=== PATIENT | female | born 1990 | race Caucasian/White ===

== ENCOUNTER 2017-02-12 14:54 | Emergency (ER) | payer MEDICAID, OTHER ==
[~2017-02-12] VITALS: Ht 160 cm; Wt 74.8 kg
[2017-02-12] MEDS ORDERED: Prenatal Vitamin PO (15:18)
--- NOTE | 2017-02-12 15:53 | PD ---
HPI Chief Complaint Abdominal pain Decreased movement Date Seen: Feb 12, 2017 Time Seen: 15:54 Travel History International Travel<30 Days: No Contact w/Intl Traveler<30Days: No Known Affected Area: No History of Present Illness HPI Patient is a 26 year old at 26 weeks and 1 day who presents to OB triage with lower and bilateral abdominal pain x1day as well as decreased movement today. Patient states that she was experiencing irregular, sharp pains in her lower abdomen that came and went. Patient describes bilateral abdominal pain as a dull ache with tingling down her legs. Patient denies increased frequency of urination and burning with urination. Patient reports decreased movement today; since she arrived at hospital, she is feeling baby move normally. Patient denies vaginal bleeding and leakage of fluid. Of note, patient has headaches every day at baseline. Patient denies vision changes, right upper quadrant pain and swelling of hands and feet. History of preeclampsia with second . Patient completed a 24-hour urine weeks ago with OB; no concerns at that time. Per patient, ultrasound performed 3 weeks ago showed cervical length to be long. Para: 1 : 4 Miscarriage: 2 : 0 History Past Medical History Medical History: Denies Significant Hx Obstetric History Obstetric History G1 miscarriage at 7 weeks G2 34 weeks, preeclampsia, vaginal delivery, low weight - 3lbs 14 ounces , in NICU for 3 weeks G3 miscarriage at 7 weeks; June 2016 G4 current, denies complications, concern for growth - 22th percentile Past Surgical History Narrative Surgical Appendectomy 2009 Family History Family History: Negative Social History Alcohol Use: No Tobacco Use: No Substance Abuse: No Allergies-Medications (Allergen,Severity, Reaction): Coded Allergies: Sulfa (Verified Allergy, Unknown, Rash, 02/12/17) Home Meds Reported Medications [ Vitamin] No Conflict Check1 Tab PO DAILY 02/12/17 Review of Systems General / Constitutional: No: Fever, Weight Gain, Chills, Other Eyes: No: Diploplia, Blurred Vision, Visual changes, Pain, Photophobia HENT: Headaches, No: Lightheadedness Cardiovascular: No: Irregular Rhythm, Chest Pain or Discomfort, Palpitations, Tachycardia, Syncope, Varicosities, Edema, Cyanosis Respiratory: No: Cough, Short of Breath, Other Gastrointestinal: Abdominal Pain, Constipation, No: Nausea, Vomiting, Diarrhea Genitourinary: No: Urgency, Frequency, Dysuria, Hematuria Musculoskeletal: No: Limited ROM, Weakness, Cramping, Edema, Pain Skin: No Rash, No Itching, No Dryness, No Lumps, No Change in Pigmentation, No Change in Nails, No Alopecia, No Lesions Neurologic: No: Weakness, Dizziness, Syncope, Focal Abnormalities, Coordination Problem, Headache, Slurred Speech, Seizures Psychiatric: No: Depression, Suicidal Ideations, Homicidal Ideation Endocrine: No: Heat Intolerance, Cold Intolerance, Polydipsia, Polyuria, Other Physical Exam Narrative GENERAL: Well-nourished, well-developed patient. SKIN: Warm and dry. HEAD: Normocephalic and atraumatic. EYES: No scleral icterus. No injection or drainage. ENT: No nasal drainage noted. Mucous membranes pink. Airway patent. NECK: Supple, trachea midline. No JVD. CARDIOVASCULAR: Regular rate and rhythm without murmurs, gallops, or rubs. RESPIRATORY: Breath sounds equal bilaterally. No accessory muscle use. ABDOMEN/GI: Abdomen soft, non-tender, bowel sounds present, no rebound, no guarding Gravid to 26 weeks size GENITOURINARY: External Genitalia: intact and normal in appearance Dilatation: Closed Effacement: Thick Station: High Membranes: Intact Uterine Contractions: None FHT's: Category: 1 Baseline: 133 Reactive: + Variability: Moderate Decels: None EXTREMITIES: No cyanosis or edema. BACK: Nontender without obvious deformity. No CVA tenderness. NEUROLOGICAL: Awake and alert. Motor and sensory grossly within normal limits. Five out of 5 muscle strength in all muscle groups. Normal speech. Data Data Vital Signs Reviewed: Yes MDM Plan Patient is a 26 year old at 26 weeks and 1 day who presents to OB triage with lower and bilateral abdominal pain x1day as well as decreased movement today. * monitoring - see PE * UA negative * Encouraged hydration * Discharge home Diagnosis Diagnosis: Primary Impression: Abdominal pain affecting , antepartum Additional Impression: 26 weeks gestation of Disposition: DISCHARGE HOME Condition: Good Jocelyn Lewis MD R1 Feb 12, 2017 15:53
== END 2017-02-12 16:22 | disposition home or self-care (01) ==
LOC: HOBED 14:54
DX: O36.8120 Decreased fetal movements, second trimester, not applicable or unspecified (principal); O47.02 False labor before 37 completed weeks of gestation, second trimester; Z3A.26 26 weeks gestation of pregnancy
CPT/HCPCS: 99283

== ENCOUNTER 2017-04-24 10:50 | Emergency (ER) | payer MEDICAID ==
[~2017-04-24 10:50] MED LIST: Prenatal Vitamin PO
--- NOTE | 2017-04-24 11:43 | PD ---
HPI Chief Complaint Elevated blood pressure at home Date Seen: Apr 24, 2017 Time Seen: 11:40 Travel History International Travel<30 Days: No Contact w/Intl Traveler<30Days: No Known Affected Area: No History of Present Illness HPI 26-year-old who is at 36 weeks 2 days comes in complaining of elevated blood pressure when she took it at [employer]. Patient was concerned as her first was affected with preeclampsia that was being followed when she spontaneously ruptured her membranes and was delivered at 34 weeks. Patient denies any headache, edema, or abdominal pain. Patient is being followed by Dr. Kwon with normal blood pressures in the office with another appointment on Thursday for recheck. Patient denies any complications. Weeks Gestation: 36 Para: 1 : 4 History Past Medical History Medical History: Denies Significant Hx Obstetric History Obstetric History Spontaneous vaginal delivery at 34 weeks gestation Past Surgical History Surgical History: No Previous Surgery Family History Family History: Negative Social History Alcohol Use: No Tobacco Use: No Substance Abuse: No Allergies-Medications (Allergen,Severity, Reaction): Coded Allergies: Sulfa (Sulfonamide Antibiotics) (Unverified Allergy, Unknown, Rash, ) Home Meds Reported Medications [ Vitamin] No Conflict Check, 1 TAB PO DAILY 02/12/17 Review of Systems Except as stated in HPI: all other systems reviewed are Neg Physical Exam Narrative GENERAL: Well-nourished, well-developed patient. SKIN: Warm and dry. HEAD: Normocephalic and atraumatic. EYES: No scleral icterus. No injection or drainage. ENT: No nasal drainage noted. Mucous membranes pink. Airway patent. NECK: Supple, trachea midline. No JVD. CARDIOVASCULAR: Regular rate and rhythm without murmurs, gallops, or rubs. RESPIRATORY: Breath sounds equal bilaterally. No accessory muscle use. ABDOMEN/GI: Abdomen soft, non-tender, bowel sounds present, no rebound, no guarding Gravid to [36-] weeks size Fundal Height: [-] GENITOURINARY: Deferred External Genitalia: intact and normal in appearance BUS glands: [-] Cervix: [-] Dilatation: [-] Effacement: [-] Station: [-] Presentation: [-] Membranes: [intact or ruptured] Uterine Contractions: [-] FHT's: Category: [1-] Baseline: [140-] Reactive: [Moderate-] Variability: [Moderate-] Decels: [-Absent] EXTREMITIES: No cyanosis or edema. BACK: Nontender without obvious deformity. No CVA tenderness. NEUROLOGICAL: Awake and alert. Motor and sensory grossly within normal limits. Five out of 5 muscle strength in all muscle groups. Normal speech. Urine dip, negative protein Data Data Vital Signs Reviewed: Yes MDM Medical Record Reviewed: Yes Plan 26-year-old with a history of hypertension with her first Blood pressure here is 118/72, 112/72 with negative protein and no additional symptoms Discharge home with follow-up on Thursday Diagnosis Diagnosis: Primary Impression: 36 weeks gestation of Additional Impressions: History of pre-eclampsia in prior , currently Elevated blood pressure reading Disposition: DISCHARGE HOME Roberta Freire MD Apr 24, 2017 11:43
== END 2017-04-24 12:02 | disposition home or self-care (01) ==
LOC: HOBED 10:50
DX: O26.93 Pregnancy related conditions, unspecified, third trimester (principal); R03.0 Elevated blood-pressure reading, without diagnosis of hypertension; Z3A.36 36 weeks gestation of pregnancy
CPT/HCPCS: 59025

== ENCOUNTER 2017-05-15 21:32 | Inpatient (IN) | payer MEDICAID ==
[~2017-05-15] VITALS: Ht 160 cm; Wt 84.0 kg
[2017-05-15] VITALS (17 sets, daily range): BP systolic 114–118; BP diastolic 69–87; PULSE 95–108; RESP 14; TEMP 98
[2017-05-15] MEDS ORDERED: LACTATED RINGER'S 1000 ML INJ 1,000 ML IV PRN (22:31)
[2017-05-15] MEDS ORDERED: LACTATED RINGER'S 1000 ML INJ 1,000 ML IV SCH (22:31)
--- NOTE | 2017-05-15 22:44 | PD ---
HPI Chief Complaint Ruptured membranes 39 weeks and 2 days Date Seen: May 15, 2017 Time Seen: 22:00 Travel History International Travel<30 Days: No Contact w/Intl Traveler<30Days: No Known Affected Area: No History of Present Illness HPI 26 yo at 39 weeks and 2 days who presents with leaking fluid . Pt reports clear leak at about 20:00. Pt is GBS negative. Pt reports active movements. No vaginal bleeding. EDC 05-20-2017, care with Dr Kwon. Care previously uncomplicated. Prior complicated with pre-eclampsia. Weeks Gestation: 39 Para: 1 : 2 History Past Medical History Narrative Medical h/o depression/ Anxiety/ PTSD Medical History: Denies Significant Hx Obstetric History Obstetric History Prior vaginal delivery at 34 weeks, complicated by pre-eclampsia. Past Surgical History Narrative Surgical Appendectomy Social History Alcohol Use: No Tobacco Use: No Substance Abuse: No Allergies-Medications (Allergen,Severity, Reaction): Coded Allergies: Sulfa (Sulfonamide Antibiotics) (Unverified Allergy, Unknown, Rash, ) Home Meds Reported Medications [ Vitamin] No Conflict Check, 1 TAB PO DAILY 02/12/17 Review of Systems Except as stated in HPI: all other systems reviewed are Neg Physical Exam Narrative GENERAL: Well-nourished, well-developed patient. SKIN: Warm and dry. HEAD: Normocephalic and atraumatic. EYES: No scleral icterus. No injection or drainage. ENT: No nasal drainage noted. Mucous membranes pink. Airway patent. NECK: Supple, trachea midline. No JVD. CARDIOVASCULAR: Regular rate and rhythm without murmurs, gallops, or rubs. RESPIRATORY: Breath sounds equal bilaterally. No accessory muscle use. BREASTS: Bilateral exam showed no masses , no retractions, no nipple discharge. ABDOMEN/GI: Abdomen soft, non-tender, bowel sounds present, no rebound, no guarding Gravid to [39 weeks] weeks size Fundal Height: [-] GENITOURINARY: External Genitalia: intact and normal in appearance BUS glands: [wnl] Cervix: [soft] Dilatation: [3cm] Effacement: [605] Station: [-2] Presentation: [vertex] Membranes: [ruptured] Amniosure POSITIVE Uterine Contractions: [irregular] FHT's: Category: [cat 1] Baseline: [130s] Reactive: [-] Variability: [moderate] Decels: [none] EXTREMITIES: No cyanosis or edema. BACK: Nontender without obvious deformity. No CVA tenderness. NEUROLOGICAL: Awake and alert. Motor and sensory grossly within normal limits. Five out of 5 muscle strength in all muscle groups. Normal speech. Data Data Vital Signs Reviewed: Yes Group B Strep: Negative MDM Medical Record Reviewed: Yes Plan 26 yo at 39 weeks and 4 days. Presents with SROM at term. GBS negative. Will admit with expectation of labor and delivery. Plan discussed with dr pickard, Diagnosis Diagnosis: Primary Impression: with 39 completed weeks gestation Additional Impression: Ruptured, membranes, premature Viktor Robertson MD May 15, 2017 22:44
[2017-05-15] MEDS ORDERED: OXYTOCIN 30 UNITS-500ML PREMIX 500 ML IV ONE (22:45)
[2017-05-15] MEDS ORDERED: LIDOCAINE HCL 1% 50 ML VIAL INFIL PRN (22:45)
[2017-05-15] MEDS ORDERED: MINERAL OIL 10 ML VIAL TOPICAL PRN (22:45)
[2017-05-15] MEDS ORDERED: SODIUM CHLORID 0.9% 500 ML INJ 500 ML IV PRN (22:45)
[2017-05-15] MEDS ORDERED: CITRIC ACID-SODIUM CITRATE LIQ 30 ML UDC PO SCH (22:45)
[2017-05-15] MEDS ORDERED: LIDOCAINE HCL 1% 50 ML VIAL I-DERMAL PRN (22:45)
[2017-05-15] MEDS ORDERED: SODIUM CHLOR 0.9% 1000 ML INJ 1,000 ML IV PRN (22:51)
[2017-05-15 23:23] LABS: AUTOMATED NEUTROPHIL # 10.6 TH/MM3 (1.8-7.7); BASOPHIL % 0.2 % (0.0-2.0); EOSINOPHIL # 0.1 TH/MM3 (0-0.4); EOSINOPHIL % 0.7 % (0.0-4.0); HEMATOCRIT 38.8 % (35.0-46.0); HEMOGLOBIN 13.1 GM/DL (11.6-15.3); LYMPH % 18.7 % (9.0-44.0); LYMPHOCYTE # 2.7 TH/MM3 (1.0-4.8); MEAN CELL VOLUME 92.9 FL (80.0-100.0); MEAN CORPUSCULAR HEMOGLOBIN 31.4 PG (27.0-34.0); MEAN CORPUSCULAR HGB CONC 33.8 % (32.0-36.0); MEAN PLATELET VOLUME 10.3 FL (7.0-11.0); MONO % 7.7 % (0.0-8.0); MONOCYTE # 1.1 TH/MM3 (0-0.9); NEUT % 72.7 % (16.0-70.0); PLATELET COUNT 205 TH/MM3 (150-450); RED BLOOD COUNT 4.18 MIL/MM3 (4.00-5.30); RED CELL DISTRIBUTION WIDTH 13.1 % (11.6-17.2); WHITE BLOOD COUNT 14.6 TH/MM3 (4.0-11.0)
[2017-05-15 23:35] LABS: AMORPHOUS SEDIMENT, URINE OCC; BACTERIA, URINE FEW /hpf; BILIRUBIN, URINE NEG (NEG); BLOOD, URINE TRACE (NEG); GLUCOSE,URINE NEG (NEG); KETONE, URINE NEG (NEG); MUCUS URINE FEW /lpf (OCC); NITRITE,URINE NEG (NEG); PH, URINE 6.5 (5.0-8.5); SQUAMOUS EPITHELIAL CELL URINE 10 /hpf (0-5); URINE COLOR LIGHT-YELLOW (YELLW/STRAW); URINE LEUKOCYTE ESTERASE MOD (NEG)
--- NOTE | 2017-05-15 23:35 | HHI.HP ---
HPI Chief Complaint Leaking fluid 39 weeks and 2 days Date Seen: May 15, 2017 Time Seen: 22:30 Travel History International Travel<30 Days: No Contact w/Intl Traveler<30Days: No Known Affected Area: No History of Present Illness HPI 26 yo at 39 weeks and 2 days who presents with leaking fluid . Pt reports clear leak at about 20:00. Pt is GBS negative. Pt reports active movements. No vaginal bleeding. EDC 05-20-2017, care with Dr Kwon. Care previously uncomplicated. Prior complicated with pre-eclampsia. Weeks Gestation: 39 Para: 1 : 2 History Past Medical History Medical History: Denies Significant Hx Obstetric History Obstetric History Previous delivered preeterm at 34 weeks, complicated by pre-eclampsia Past Surgical History Narrative Surgical Appendectomy Surgical History: No Previous Surgery Family History Family History: Negative Social History Alcohol Use: No Tobacco Use: No Substance Abuse: No Allergies-Medications (Allergen,Severity, Reaction): Coded Allergies: Sulfa (Sulfonamide Antibiotics) (Unverified Allergy, Unknown, Rash, ) Home Meds Reported Medications [ Vitamin] No Conflict Check, 1 TAB PO DAILY 02/12/17 Review of Systems Except as stated in HPI: all other systems reviewed are Neg Physical Exam Vital Signs Date Time Temp Pulse Resp B/P (MAP) Pulse Ox O2 Delivery O2 Flow Rate FiO2 05/15/17 23:00 98.0 14 05/15/17 22:55 95 05/15/17 22:55 102 118/87 (97) 05/15/17 22:50 108 05/15/17 22:45 108 Narrative GENERAL: Well-nourished, well-developed patient. SKIN: Warm and dry. HEAD: Normocephalic and atraumatic. EYES: No scleral icterus. No injection or drainage. ENT: No nasal drainage noted. Mucous membranes pink. Airway patent. NECK: Supple, trachea midline. No JVD. CARDIOVASCULAR: Regular rate and rhythm without murmurs, gallops, or rubs. RESPIRATORY: Breath sounds equal bilaterally. No accessory muscle use. BREASTS: Bilateral exam showed no masses , no retractions, no nipple discharge. ABDOMEN/GI: Abdomen soft, non-tender, bowel sounds present, no rebound, no guarding Gravid to [39] weeks size Fundal Height: [39] GENITOURINARY: External Genitalia: intact and normal in appearance BUS glands: [wnl] Cervix: [soft] Dilatation: [3cm] Effacement: [60%] Station: [-2] Presentation: [vertex] Membranes: [intact or ruptured] Uterine Contractions: [irregular] FHT's: Category: [cat 1] Baseline: [130s Reactive: [-] Variability: [moderate] Decels: [none] EXTREMITIES: No cyanosis or edema. BACK: Nontender without obvious deformity. No CVA tenderness. NEUROLOGICAL: Awake and alert. Motor and sensory grossly within normal limits. Five out of 5 muscle strength in all muscle groups. Normal speech. Caprini VTE Risk Assessment Caprini VTE Risk Assessment: No/Low Risk (score <= 1) Caprini Risk Assessment Model Point Value = 1 Point Value = 2 Point Value = 3 Point Value = 5 Age 41-60 Minor surgery BMI > 25 kg/m2 Swollen legs Varicose veins or History of unexplained or recurrent spontaneous Oral contraceptives or hormone replacement Sepsis (< 1 month) Serious lung disease, including pneumonia (< 1 month) Abnormal pulmonary function Acute myocardial infarction Congestive heart failure (< 1 month) History of inflammatory bowel disease Medical patient at bed rest Age 61-74 Arthroscopic surgery Major open surgery (> 45 min) Laparoscopic surgery (> 45 min) Malignancy Confined to bed (> 72 hours) Immobilizing plaster cast Central venous access Age >= 75 History of VTE Family history of VTE Factor V Leiden Prothrombin [id number] Lupus anticoagulant Anticardiolipin antibodies Elevated serum homocysteine Heparin-induced thrombocytopenia Other congenital or acquired thrombophilia Stroke (< 1 month) Elective arthroplasty Hip, pelvis, or leg fracture Acute spinal cord injury (< 1 month) Prophylaxis Regimen Total Risk Factor Score Risk Level Prophylaxis Regimen 0-1 Low Early ambulation 2 Moderate Order ONE of the following: *Sequential Compression Device (SCD) *Heparin 5000 units SQ BID 3-4 Higher Order ONE of the following medications: *Heparin 5000 units SQ TID *Enoxaparin/Lovenox 40 mg SQ daily (WT < 150 kg, CrCl > 30 mL/min) *Enoxaparin/Lovenox 30 mg SQ daily (WT < 150 kg, CrCl > 10-29 mL/min) *Enoxaparin/Lovenox 30 mg SQ BID (WT < 150 kg, CrCl > 30 mL/min) AND/OR *Sequential Compression Device (SCD) 5 or more Highest Order ONE of the following medications: *Heparin 5000 units SQ TID (Preferred with Epidurals) *Enoxaparin/Lovenox 40 mg SQ daily (WT < 150 kg, CrCl > 30 mL/min) *Enoxaparin/Lovenox 30 mg SQ daily (WT < 150 kg, CrCl > 10-29 mL/min) *Enoxaparin/Lovenox 30 mg SQ BID (WT < 150 kg, CrCl > 30 mL/min) AND *Sequential Compression Device (SCD) Data Data Vital Signs Reviewed: Yes Orders Orders Ob (2e) Additional Admit Info (05/15/17 22:29) Admit To Inpatient (05/15/17 ) Code Status (05/15/17 22:31) Vital Signs (Adult) .Per protocol (05/15/17 22:31) Activity Oob Ad Vivian (05/15/17 22:31) Heart (05/15/17:31) Amnioinfusion (05/15/17:31) Urinary Catheter Management .ONCE (05/15/17 22:31) Diet Liquid (05/16/17 Breakfast) Lactated Ringer's 1000 Ml Inj (Lr 1000 M (05/15/17 22:31) Lactated Ringer's 1000 Ml Inj (Lr 1000 M (05/15/17 22:31) Sodium Chlorid 0.9% 500 Ml Inj (Ns 500 M (05/15/17 22:45) Sodium Chlor 0.9% 1000 Ml Inj (Ns 1000 M (05/15/17 22:51) Lidocaine 1% Inj (50 Ml) (Xylocaine 1% I (05/15/17 22:45) Citric Acid-Sodium Citrate Liq (Bicitra (05/15/17 22:45) Fentanyl Inj (Fentanyl Inj) (05/15/17 22:45) Fentanyl Inj (Fentanyl Inj) (05/15/17 22:45) Complete Blood Count With Diff (05/15/17 22:31) Hold Clot (05/15/17 22:31) Abo/Rh Blood Type (05/15/17 22:31) Urinalysis - C+S If Indicated (05/15/17 22:31) Drug Screen, Random Urine (05/15/17 22:31) Resp Oxygen Non Rebreathe Mask (05/15/17 ) ^ Epidural / Intrathecal Infus (05/15/17 22:31) Oxytocin 30 Units-500ml Premix (Pitocin (05/15/17 22:45) Lidocaine 1% Inj (50 Ml) (Xylocaine 1% I (05/15/17 22:45) Light Mineral Oil (Muri-Lube Oil) (05/15/17 22:45) Inpatient Certification (05/15/17 ) Group B Strep: Negative Labs Laboratory Tests Test 05/15/17 22:55 White Blood Count 14.6 Red Blood Count 4.18 Hemoglobin 13.1 Hematocrit 38.8 Mean Corpuscular Volume 92.9 Mean Corpuscular Hemoglobin 31.4 Mean Corpuscular Hemoglobin Concent 33.8 Red Cell Distribution Width 13.1 Platelet Count 205 Mean Platelet Volume 10.3 Neutrophils (%) (Auto) 72.7 Lymphocytes (%) (Auto) 18.7 Monocytes (%) (Auto) 7.7 Eosinophils (%) (Auto) 0.7 Basophils (%) (Auto) 0.2 Neutrophils # (Auto) 10.6 Lymphocytes # (Auto) 2.7 Monocytes # (Auto) 1.1 Eosinophils # (Auto) 0.1 Basophils # (Auto) 0.0 CBC Comment DIFF FINAL Differential Comment Assessment/Plan Assessment and Plan 26 yo , Term SROM at 39 weeks and 2 days GBS negative. Irregular contractions. plan admission and Pitocin augmentation. Discussed with Dr [place]. Viktor Robertson MD May 15, 2017 23:35
[2017-05-15] MEDS ORDERED: OXYTOCIN 30 UNITS-500ML PREMIX 500 ML IV SCH (23:45)
[2017-05-16] VITALS (81 sets, daily range): BP systolic 95–136; BP diastolic 61–93; PULSE 16–182; RESP 15–18; TEMP 98–98.6
[2017-05-16] MEDS ORDERED: MISOPROSTOL 100 MCG TAB ONE (03:53)
[2017-05-16] MEDS ORDERED: BENZOCAINE 20% TOPICAL SPRAY 60 ML CAN TOPICAL PRN (06:00)
[2017-05-16] MEDS ORDERED: ONDANSETRON ODT 4 MG TAB PO PRN (06:00)
[2017-05-16] MEDS ORDERED: OXYTOCIN 30 UNITS-500ML PREMIX 500 ML IV SCH (06:00)
[2017-05-16] MEDS ORDERED: WITCH HAZEL 50%/GLYCERIN 12.5% 40 PAD JAR TOPICAL PRN (06:00)
[2017-05-16] MEDS ORDERED: SODIUM CHLORIDE 0.9% FLUSH 10 ML FLUSH IV FLUSH PRN (06:00)
[2017-05-16] MEDS ORDERED: ALUMINUM/MAGNESIUM/SIMETH 30 ML CUP PO PRN (06:00)
[2017-05-16] MEDS ORDERED: oxyCODONE/ACETAMINOPHEN 5 MG/325 MG TAB PO PRN (06:00)
[2017-05-16] MEDS ORDERED: ZOLPIDEM TARTRATE 5 MG TAB PO PRN (06:00)
--- NOTE | 2017-05-16 06:00 | PD.OB.DELI ---
Weeks gestation: 39 Gest age assessed date: May 16, 2017 Gest age assessed time: 21:00 Pt started active labor?: Yes Active labor start date: May 15, 2017 Active labor start time: 22:00 Medical induction of labor?: No Artificial rupture of membrane: No Anesthesia: None Episiotomy: Midline Vaginal Delivery: Normal, Spontaneous, Precipitous Presentation: Occiput anterior Nuchal Cord: None Delayed cord clamping (45 sec): Yes Infant: Female Delivery date: May 16, 2017 Delivery time: 05:38 One Minute : 9 Five Minute : 9 Placenta: Spontaneous delivery Laceration: Perineal laceration Repair: Vicryl running Estimated blood loss: 150 Viktor Robertson MD May 16, 2017 06:00
[2017-05-16] MEDS: IBUPROFEN 600 MG TAB PO PRN ×3 (06:15→17:41)
[2017-05-16] MEDS: ACETAMINOPHEN 325 MG TAB PO PRN ×3 (06:16→17:40)
[2017-05-16] MEDS ORDERED: SODIUM CHLORIDE 0.9% FLUSH 10 ML FLUSH IV FLUSH SCH (09:00)
[2017-05-16] MEDS: DOCUSATE SODIUM 50 MG/SENNA 8.6 MG TAB PO PRN (12:10)
[2017-05-16] MEDS ORDERED: DIPHTH/TETANUS/ACEL PERTUSSIS (BOOSTER) 0.5 ML VIAL/PFS IM ONE (16:00)
[2017-05-16] MEDS ORDERED: MEASLES, MUMPS, RUBELLA VACCINE 0.5 ML VIAL SQ ONE (16:00)
[2017-05-17] MEDS: DOCUSATE SODIUM 50 MG/SENNA 8.6 MG TAB PO PRN (01:54)
[2017-05-17] MEDS: ACETAMINOPHEN 325 MG TAB PO PRN ×2 (01:54→11:46)
[2017-05-17] MEDS: IBUPROFEN 600 MG TAB PO PRN ×2 (01:55→11:45)
[2017-05-17 08:40] VITALS: BP 108/80; PULSE 86; RESP 16; TEMP 98.1
--- NOTE | 2017-05-17 12:19 | HHI.OB ---
Subjective Post Day: 1 Remarks feeling well other than perineal discomfort, performing pericare Objective Vitals/I&O Vital Signs Date Time Temp Pulse Resp B/P (MAP) Pulse Ox O2 Delivery O2 Flow Rate FiO2 05/17/17 08:40 98.1 05/17/17 08:40 86 16 108/80 (89) 05/16/17 20:06 98.1 96 17 113/69 (84) Objective Remarks GENERAL: Well-nourished, well-developed patient. CARDIOVASCULAR: Regular rate and rhythm without murmurs, gallops, or rubs. RESPIRATORY: Breath sounds equal bilaterally. No accessory muscle use. ABDOMEN/GI: Abdomen soft, non-tender. Fundus: Firm, non-tender at umbilicus. GENITOURINARY: Light to moderate bleeding. EXTREMITIES: No cyanosis, non-tender, without signs of DVT. BLE 1+ edema Medications and IVs Current Medications Medications (Trade) Dose Ordered Sig/Lety Route Start Time Stop Time Status Last Admin (NS Flush) 2 ml BID IV FLUSH 05/16/17 09:00 (NS Flush) 2 ml UNSCH PRN IV FLUSH 05/16/17 06:00 (Tylenol) 650 mg Q4H PRN PO 05/16/17 06:00 05/17/17 11:46 (Motrin) 600 mg Q6H PRN PO 05/16/17 06:00 05/17/17 11:45 (Percocet 5-325 Mg) 1 tab Q4H PRN PO 05/16/17 06:00 (Americaine 20% Top Spr) 1 spray Q4H PRN TOPICAL 05/16/17 06:00 (Tucks Pads) 1 applic QID PRN TOPICAL 05/16/17 06:00 (Sweta-Colace) 2 tab Q12H PRN PO 05/16/17 06:00 05/17/17 01:54 (Ambien) 5 mg HS PRN PO 05/16/17 06:00 (Mag-Al Plus Susp Liq) 15 ml Q8H PRN PO 05/16/17 06:00 (Zofran Odt) 4 mg Q6H PRN PO 05/16/17 06:00 Assessment/Plan Assessment and Plan 26 yo s/p ftsvd, precipitous PPD 1 doing well, desires d/c today if infant ready cont routine supportive care Discharge Planning d/c today home Harini Colorado MD May 17, 2017 12:19
[2017-05-17] MEDS ORDERED: IBUP-232 PO (12:25)
--- NOTE | 2017-05-17 12:26 | HHI.DCPOC ---
Discharge Care Plan Diagnosis: (1) Vaginal delivery Your Health Problems Are: Vaginal delivery Report Symptoms to Your Doctor -Temperature above 100.5 degrees -Redness, of incision or excessive or foul smelling drainage -Unusual pain or calf pain -Increased vaginal bleeding -Painful or difficulty urinating -Feelings of extreme sadness or anxiety after 2 weeks Goals to Promote Your Health * To prevent worsening of your condition and complications * To maintain your health at the optimal level Directions to Meet Your Goals Take your medications as prescribed Follow your dietary instruction Follow activity as directed Ensure plenty of rest for recovery Drink fluids for hydration Keep your appointments as scheduled Take your immunizations and boosters as scheduled If your symptoms worsen call your PCP, if no PCP go to Urgent Care Center or Emergency Room Smoking is Dangerous to Your Health. Avoid second hand smoke Call the 24-hour crisis hotline for domestic abuse at Harini Colorado MD May 17, 2017 12:26
== END 2017-05-17 17:16 | disposition home or self-care (01) | DRG 775 ==
LOC: HOBED 21:32 → H2EB 22:30 → H1EA 05-16 07:46
PROVIDERS: ADMIT Obstetrics & Gynecology; ATTEND Obstetrics & Gynecology
PROC: 0W8NXZZ Division of Female Perineum, External Approach (ICD-10-PCS; principal; 2017-05-16)
PROC: 10E0XZZ Delivery of Products of Conception, External Approach (ICD-10-PCS; 2017-05-16)
PROC: 0HQ9XZZ Repair Perineum Skin, External Approach (ICD-10-PCS; 2017-05-16)
DX: O99.344 Other mental disorders complicating childbirth (principal); F41.9 Anxiety disorder, unspecified; O70.9 Perineal laceration during delivery, unspecified; F43.10 Post-traumatic stress disorder, unspecified; Z37.0 Single live birth; Z3A.39 39 weeks gestation of pregnancy
CPT/HCPCS: 80307; 81001; 84112; 85025; 86900; 86901; 87086; J2590; J3010; J7120

== ENCOUNTER 2018-05-17 20:33 | Inpatient (IN) ==
[2018-05-17 22:51] LABS: Baso % (Auto) 0.4 % (0.0-2.0); Eos # (Auto) 0.1 th/mm3 (0.0-0.4); Eos % (Auto) 0.7 % (0.0-4.0); Hematocrit 36.5 % (35.0-46.0); Hemoglobin 12.3 gm/dL (11.6-15.3); Lymph # (Auto) 2.5 th/mm3 (1.0-4.8); Lymph % (Auto) 20.8 % (9.0-44.0); Mean Corpuscular HGB Conc 33.7 % (32.0-36.0); Mean Platelet Volume 10.6 fL (7.0-11.0); Mono % (Auto) 8.2 % (0.0-8.0); Neut # (Auto) 8.3 th/mm3 (1.8-7.7); Neut % (Auto) 69.9 % (16.0-70.0); Platelet Count 175 th/mm3 (150-450); Red Blood Count 3.84 mil/mm3 (4.00-5.30); Red Cell Distribution Width 13.7 % (11.6-17.2); White Blood Count 11.9 th/mm3 (4.0-11.0)
[2018-05-17] MEDS ORDERED: Sodium Chlor 0.9% Inj 500 ML IV.SIG PRN (22:53)
[2018-05-17] MEDS ORDERED: Sod Chloride 0.9% Inj 1,000 ML IV.CONT PRN (22:53)
[2018-05-17] MEDS ORDERED: Oxytocin 30 Units/500ml Premix 30 UNITS/500 ML BAG IV.SIG ONE (22:53)
[2018-05-17] MEDS ORDERED: fentaNYL Citrate Inj 100 MCG/2 ML Ampul IV.PUSH PRN ×2 (22:53)
[2018-05-17] MEDS ORDERED: Naloxone Inj 0.4 MG/ML Vial IV.PUSH PRN (22:53)
[2018-05-17] MEDS ORDERED: Citric Acid/Sodium Citrate Liq 30 ML UDC PO SCH (23:00)
[2018-05-17 23:04] LABS: Amphetamine Urine With Conf Neg (Neg); Benzodiazepine Urine With Conf Neg (Neg)
[2018-05-17 23:12] LABS: Bacteria,Urine Rare /hpf; Bilirubin,Urine Negative (Negative); Calcium Oxalate Crystals,Urine Occasional /hpf; Clarity,Urine Hazy (Clear); Color,Urine Yellow (Yellw/Straw); Glucose,Urine (UA) Negative (Negative); Leukocyte Esterase,Urine Negative (Negative); Mucus,Urine Few /lpf (Occasional); Nitrite,Urine Negative (Negative); Specific Gravity,Urine 1.023 (1.002-1.035); Squamous Epithelial Cell,Urine 11 /hpf (0-5)
[2018-05-18] MEDS ORDERED: Penicillin G Potassium Inj 5,000,000 UNIT in Sodium Chloride 0.9% Inj 100 ML IV.SIG ONE (00:23)
--- NOTE | 2018-05-18 03:43 | P.HPOB ---
History of Present Illness Service: obstetrics Primary Care Physician: NOT REQUIRED Chief Complaint: postdates labor induction History of Present Illness: (Late entry, pt admitted 05/17/18 evening) 27 yo with EDC 05/15/18 admitted for postdates labor induction 05/17/18 at 40w2d. Pt has been seen throughout with only complication being short inter- interval, last devliery was 05/16/17, healthy full term daughter at that time. This is a male fetus. At office visit pt was complaining of pelvic pressure, irregular contractions, denies leakage of fluid or vaginal bleeding, endorsed good movement. BPP was 8/8 in office. Pain 3/10 in low pelvis. Weeks Gestation:: 40 Para: 2 : 5 Total # of Miscarriage(s): 2 - Inpatient Certification I certify that the inpatient services were ordered in accordance with Medicare regulations governing the order. This includes certification that hospital inpatient services are reasonable and necessary and in the case of services not specified as inpatient-only under 42 CFR 419.22(n), that they are appropriately provided as inpatient services in accordance to with the 2-midnight benchmark under 43 CFR 412.3(e) Estimated Total Length of Stay (Days): 3 Plans for Post Hospital Care: Home Review of Systems All other systems reviewed negative except as stated in HPI PMFSH - Medical / Surgical Hx Neg / Unobtainable Surgical History: No Previous Surgery - Medical History Medical History: Medical History (Last Updated 05/18/18 @ 03:39 by Vi Kwon MD) History of pre-eclampsia in prior , currently - Surgical History Surgical History: Surgical History (Last Updated 05/18/18 @ 03:39 by Vi Kwon MD) No history of previous surgery - Family History Family History: Family History (Last Updated 05/18/18 @ 03:40 by Vi Kwon MD) Other No significant family history - Social History I have reviewed the patient's Social History: Yes - Tobacco History Second Hand Smoke Exposure: No Tobacco Use In Past 30 Days: No Smoking Status: Never smoker - Alcohol History How Often Do You Have a Drink Containing Alcohol: Never - Substance Use History Substance History: No History of Abuse - Travel History History of Recent Travel: No Recent Travel in the [place] Within the Last 8 Weeks: No Recent Travel Out of the Country Within the Last 8 Weeks: No Medications and Allergies Active Medications: Active Medications Citric Acid/Sodium Citrate (Sodium Citrate/Citric Acid Liq) 30 ml PO INSOLE DOUBLER [facility] Stop: 05/21/18 22:59 Fentanyl Citrate (Fentanyl Inj) 50 mcg IV.PUSH Q1H PRN PRN Reason: Pain Scale 3 - 5 Fentanyl Citrate (Fentanyl Inj) 100 mcg IV.PUSH Q1H PRN PRN Reason: PAIN SCALE 6 TO 10 Lactated Ringer's (Lr 1000 Ml Inj) 1,000 mls @ 125 mls/hr IV.SIG .Q8H [facility] Last Admin: 05/17/18 23:13 Dose: 125 mls/hr Lactated Ringer's (Lr 1000 Ml Inj) 1,000 mls @ 125 mls/hr IV.CONT .Q8H WES Lactated Ringer's (Lr 1000 Ml Inj) 1,000 mls @ 3,000 mls/hr IV.SIG UNSCH PRN PRN Reason: compromise or epidural Sodium Chloride (Ns Inj) 500 mls @ 1,000 mls/hr IV.SIG UNSCH PRN PRN Reason: SEE LABEL COMMENTS Sodium Chloride (Ns Inj) 1,000 mls @ 100 mls/hr IV.CONT .Q10H PRN PRN Reason: SEE LABEL COMMENTS Lidocaine HCl (Xylocaine 1% Inj) 10 ml INFILTRATN PRN PRN PRN Reason: For episiotomy repair Stop: 05/19/18 22:52 Lidocaine HCl (Xylocaine 1% Inj) 0.1 ml I-DERMAL PRN PRN PRN Reason: For IV start Stop: 05/20/18 22:52 Mineral Oil (Muri-Lube Oil) 10 ml TOPICAL PRN PRN PRN Reason: PRN perineal massage Misoprostol (Cytotec) 50 mcg PO UNSCH X1 [facility] Stop: 05/18/18 07:00 Last Admin: 05/17/18 23:17 Dose: 50 mcg Naloxone HCl (Narcan Inj) 0.1 mg IV.PUSH Q2M PRN PRN Reason: for opiate reversal Allergies Allergy/AdvReac Type Severity Reaction Status Date / Time Sulfa (Sulfonamide Allergy Unknown Rash Verified 05/17/18 22:33 Antibiotics) Home Medications Medication Instructions Recorded Confirmed Type PNV #[id number] 1 tab PO DAILY 05/17/18 05/17/18 History Exam Vital signs: Vital Signs 05/17/18 20:51 05/17/18 21:00 05/17/18 23:33 Temperature 98.4 F Pulse Rate 107 H 101 H Respiratory Rate 18 Blood Pressure 117/80 128/82 05/17/18 23:39 05/18/18 01:08 05/18/18 02:06 Temperature 98.1 F 98.4 F 98.2 F Pulse Rate Respiratory Rate 18 Blood Pressure Intake & Output 05/17/18 05/17/18 05/18/18 06:59 18:59 06:59 Weight 91 kg - Constitutional no acute distress - Routine HEENT Exam Head: Present: normocephalic, atraumatic Eye: Present: EOMI ENT: Present: mucous membranes moist - Routine Neck Exam Present: supple, full ROM - Routine Chest/Breast/Axilla Exam Chest wall: Absent: tenderness, mass - Routine Respiratory Exam Absent: accessory muscle use, rales - Routine Cardiovascular Exam Present: RRR. Absent: bradycardia - Routine Abdominal Exam Present: normoactive bowel sounds. Absent: guarding Comments: gravid c/w dates - Routine Extremities Exam Present: pulses intact. Absent: cyanosis - Routine Skin Exam Present: intact. Absent: erythema - Routine Neurological Exam Present: alert, oriented X3 Results - Labs CBC & Chem 7: 05/17/18 21:40 Labs: Laboratory Results - last 24 hr 05/17/18 05/17/18 05/17/18 21:40 21:40 21:46 WBC 11.9 H RBC 3.84 L Hgb 12.3 Hct 36.5 MCV 95.0 MCH 32.0 MCHC 33.7 RDW 13.7 Plt Count 175 MPV 10.6 Neut % (Auto) 69.9 Lymph % (Auto) 20.8 [place] % (Auto) 8.2 H Eos % (Auto) 0.7 Baso % (Auto) 0.4 Neut # (Auto) 8.3 H Lymph # (Auto) 2.5 [place] # (Auto) 1.0 H Eos # (Auto) 0.1 Baso # (Auto) 0.0 WBC Differential . Differential Comment Auto diff final Urine Color Urine Clarity Urine pH Ur Specific Rudy Urine Protein Urine Glucose (UA) Urine Ketones Urine Occult Blood Urine Nitrate Urine Bilirubin Urine Urobilinogen Ur Leukocyte Esterase Urine RBC Urine WBC Ur Squamous Epith Cells Calcium Oxalate Crystal Urine Bacteria Urine Mucus Micro UA Comment Ur Microscopic Review Urine Culture Comments Urine Opiates Screen Neg Ur Barbiturates Screen Neg Ur Amphetamine Screen Neg U Benzodiazepines Scrn Neg Urine Cocaine Screen Neg U Cannabinoids Screen Neg Blood Type B Positive Blood Type Recheck Not needed 05/17/18 21:46 WBC RBC Hgb Hct MCV MCH MCHC RDW Plt Count MPV Neut % (Auto) Lymph % (Auto) [place] % (Auto) Eos % (Auto) Baso % (Auto) Neut # (Auto) Lymph # (Auto) [place] # (Auto) Eos # (Auto) Baso # (Auto) WBC Differential Differential Comment Urine Color Yellow Urine Clarity Hazy H Urine pH 6.0 Ur Specific Rudy 1.023 Urine Protein Negative Urine Glucose (UA) Negative Urine Ketones Negative Urine Occult Blood Negative Urine Nitrate Negative Urine Bilirubin Negative Urine Urobilinogen Less than 2 Ur Leukocyte Esterase Negative Urine RBC 3 Urine WBC 2 Ur Squamous Epith Cells 11 Calcium Oxalate Crystal Occasional H Urine Bacteria Rare H Urine Mucus Few H Micro UA Comment Culture not ind Ur Microscopic Review Not Reportable Urine Culture Comments Culture not ind Urine Opiates Screen Ur Barbiturates Screen Ur Amphetamine Screen U Benzodiazepines Scrn Urine Cocaine Screen U Cannabinoids Screen Blood Type Blood Type Recheck Group B Strep: Negative Caprini VTE Risk Assessment Caprini VTE Risk Assessment: No/Low Risk (score <= 1) VTE Pharmacological Exception Reason: Epidural catheter Caprini Risk Assessment Model: Point Value = 1 Point Value = 2 Point Value = 3 Point Value = 5 Age 41-60 Minor surgery BMI > 25 kg/m2 Swollen legs Varicose veins or History of unexplained or recurrent spontaneous Oral contraceptives or hormone replacement Sepsis (< 1 month) Serious lung disease, including pneumonia (< 1 month) Abnormal pulmonary function Acute myocardial infarction Congestive heart failure (< 1 month) History of inflammatory bowel disease Medical patient at bed rest Age 61-74 Arthroscopic surgery Major open surgery (> 45 min) Laparoscopic surgery (> 45 min) Malignancy Confined to bed (> 72 hours) Immobilizing plaster cast Central venous access Age >= 75 History of VTE Family history of VTE Factor V Leiden Prothrombin [id number] Lupus anticoagulant Anticardiolipin antibodies Elevated serum homocysteine Heparin-induced thrombocytopenia Other congenital or acquired thrombophilia Stroke (< 1 month) Elective arthroplasty Hip, pelvis, or leg fracture Acute spinal cord injury (< 1 month) Prophylaxis Regimen: Total Risk Factor Score Risk Level Prophylaxis Regimen 0-1 Low Early ambulation 2 Moderate Order ONE of the following: *Sequential Compression Device (SCD) *Heparin 5000 units SQ BID 3-4 Higher Order ONE of the following medications: *Heparin 5000 units SQ TID *Enoxaparin/Lovenox 40 mg SQ daily (WT < 150 kg, CrCl > 30 mL/min) *Enoxaparin/Lovenox 30 mg SQ daily (WT < 150 kg, CrCl > 10-29 mL/min) *Enoxaparin/Lovenox 30 mg SQ BID (WT < 150 kg, CrCl > 30 mL/min) AND/OR *Sequential Compression Device (SCD) 5 or more Highest Order ONE of the following medications: *Heparin 5000 units SQ TID (Preferred with Epidurals) *Enoxaparin/Lovenox 40 mg SQ daily (WT < 150 kg, CrCl > 30 mL/min) *Enoxaparin/Lovenox 30 mg SQ daily (WT < 150 kg, CrCl > 10-29 mL/min) *Enoxaparin/Lovenox 30 mg SQ BID (WT < 150 kg, CrCl > 30 mL/min) AND *Sequential Compression Device (SCD) Assessment and Plan - Diagnosis (1) Post-dates Code(s): O48.0 - Post-term Status: Acute - Plan 27 yo with EDC 05/15/18 admitted for postdates labor induction 05/17/18 at 40w2d 1) IOL: plan cytotec on admission, re-evaluation for additional methods as needed 2) GBS neg 3) short inter- interval; last delivery 05/16/2017 4) status: male, vertex, 8/8 BPP in office 05/15/18, EFW 8.5# 5) dispo: not meeting d/c criteria Discharge Planning: routine, 2-3d PP (1) Post-dates Qualifiers: Post-term type: 40-42 weeks gestation Qualified Code(s): O48.0 - Post-term
[2018-05-18] MEDS ORDERED: Penicillin G Potassium Inj 2,500,000 UNIT in Sodium Chlor 0.9% Inj 100 ML IV.SIG SCH (04:00)
[2018-05-18] MEDS ORDERED: Oxytocin 30 Units/500ml Premix 30 UNITS/500 ML BAG IV.CONT PRN ×2 (06:41→08:14)
--- NOTE | 2018-05-18 06:41 | P.OBLABOR ---
Subjective Interval history: feeling regular contractions and pressure, no LOF, good FM Objective Vital Signs: Vital Signs - 8 hr 05/17/18 23:33 05/17/18 23:39 05/18/18 01:08 Temperature 98.1 F 98.4 F Pulse Rate 101 H Respiratory Rate 18 Blood Pressure 128/82 05/18/18 02:06 05/18/18 03:44 05/18/18 03:45 Temperature 98.2 F Pulse Rate 86 Respiratory Rate 18 Blood Pressure 112/73 05/18/18 05:56 05/18/18 05:57 Temperature 98.0 F Pulse Rate 93 H Respiratory Rate 18 Blood Pressure 118/79 Objective: Pelvic Exam: Cervix: [-] Dilatation: [-] Effacement: [-] Station: [-] Presentation: [-] Membranes: [intact or ruptured] Uterine Contractions: [-] FHT's: Category: [-] Baseline: [-] Reactive: [-] Variability: [-] Decels: [-] Weeks Gestation: 40 Patient Started Active Labor: Yes Medical Induction of Labor: Yes Artificial Rupture of Membrane: Yes (AROM clear approx 6am) Assessment and Plan - Diagnosis (1) Post-dates Code(s): O48.0 - Post-term Status: Acute - Plan 27 yo with EDC 05/15/18 admitted for postdates labor induction 05/17/18 at 40w2d 1) IOL: s/p cytotec on admission, naty well, AROM'd this check; pitocin written if needed 2) GBS neg 3) short inter- interval; last delivery 05/16/2017 4) status: male, vertex, 8/8 BPP in office 05/15/18, EFW 8.5# 5) dispo: not meeting d/c criteria Discharge Planning: routine, 2-3d PP (1) Post-dates Qualifiers: Post-term type: 40-42 weeks gestation Qualified Code(s): O48.0 - Post-term
[2018-05-18] MEDS ORDERED: Sodium Chloride 0.9% 2 ML Flush PRN IV.FLUSH (07:15)
[2018-05-18] MEDS ORDERED: Acetaminophen 325 MG Tablet PO PRN (08:14)
[2018-05-18] MEDS ORDERED: Witch Hazel 50%/Glyderin 12.5% 40 Pad Jar RECTAL PRN (08:14)
[2018-05-18] MEDS ORDERED: Naloxone Inj 0.4 MG/ML Vial IV.PUSH PRN (08:14)
[2018-05-18] MEDS ORDERED: Bisacodyl 10 MG Supp RECTAL PRN (08:14)
[2018-05-18] MEDS ORDERED: Zolpidem Tartrate 5 MG Tablet PO PRN (08:14)
[2018-05-18] MEDS ORDERED: Benzocaine 20% Top Spray 60 ML Can TOPICAL PRN (08:14)
--- NOTE | 2018-05-18 08:19 | P.OBDELI ---
Weeks Gestation: 40 Patient Started Active Labor: Yes Medical Induction of Labor: Yes Artificial Rupture of Membrane: Yes Anesthesia: None Episiotomy: none Vaginal Delivery: Normal, Precipitous (attended & delivered by Hospitalist Dr. Eliezer Garibay; I arrived within 30 minutes of delivery) Presentation: Vertex Nuchal Cord: x1 (tight, delivered through) Delayed Cord Clamping (45 sec): Yes Placenta: Spontaneous delivery, Intact, 3 vessel cord Laceration: Perineal, 2 deg Repair: Chromic running Estimated blood loss (mL): 100 : Male Male A Delivery Date: 05/18/18 Delivery Time: 08:04 score (1 min): 7 score (5 min): 9 Additional Information: multiparous pt with precipitous delivery attended by Hospitalist OB physician, I arrived to room within 30 minutes of delivery (within 10 minutes of delivery time) and Hospitalist was repairing perineal laceration. Uncomplicated delivery of healthy male .
[2018-05-18] MEDS ORDERED: Sodium Chloride 0.9% 2 ML Flush BID IV.FLUSH SCH (09:00)
[2018-05-18] MEDS: Ferrous Sulfate 325 MG Tablet PO SCH (13:27)
[2018-05-18] MEDS: Prenatal Vit/Ca/Iron/Folic Acid Tablet PO SCH (13:27)
[2018-05-18] MEDS: Senna/Docusate Sodium 8.6/50 MG Tablet PO SCH (13:27)
[2018-05-18] MEDS ORDERED: Measles/Mumps/Rubella Vaccine Inj 0.5 ML Vial SQ ONE (16:00)
[2018-05-18] MEDS ORDERED: Diphtheria/Tetanus/Pertussis Vaccine Inj 0.5 ML Syringe IM ONE (16:00)
[2018-05-18 20:18] VITALS: TEMP 98
[2018-05-19] MEDS: Senna/Docusate Sodium 8.6/50 MG Tablet PO SCH ×2 (01:54→10:26)
[2018-05-19 08:04] VITALS: BP 121/77; PULSE 86; RESP 20
[2018-05-19] MEDS: Ferrous Sulfate 325 MG Tablet PO SCH (10:26)
[2018-05-19] MEDS: Prenatal Vit/Ca/Iron/Folic Acid Tablet PO SCH (10:26)
--- NOTE | 2018-05-19 11:00 | P.PNOB ---
Subjective Post day: 1 Interval history: PPD#1, Stable,breast feeding; doing well. Objective Vital Signs/I&O: Vital Signs 05/18/18 20:00 05/19/18 08:00 Temperature 98.0 F 98.0 F Pulse Rate 91 H 86 Respiratory Rate 18 20 Blood Pressure 126/75 121/77 Intake & Output 05/18/18 05/19/18 05/19/18 18:59 06:59 18:59 Intake Total 1000 / 1000 Balance 1000 / 1000 Intake: IV 1000 / 1000 LR 1000 mL Inj 1,000 ML @ 125 1000 / 1000 mls/hr IV.SIG .Q8H [facility] Rx#: [id number] Result Diagrams: 05/17/18 21:40 Objective Remarks: GENERAL: Well-nourished, well-developed patient. CARDIOVASCULAR: Regular rate and rhythm without murmurs, gallops, or rubs. RESPIRATORY: Breath sounds equal bilaterally. No accessory muscle use. ABDOMEN/GI: Abdomen soft, non-tender. Fundus: Firm, non-tender at umbilicus. GENITOURINARY: Light to moderate bleeding. EXTREMITIES: No cyanosis or edema, non-tender, without signs of DVT. Medications and IVs: Active Medications Acetaminophen (Tylenol) 650 mg PO Q4H PRN PRN Reason: PAIN SCALE 1 TO 2 Al Hydroxide/Mg Hydroxide (Milk Of Magnesia Liq) 30 ml PO Q12H PRN PRN Reason: Mild Constipation Benzocaine (Americaine 20% Top [place]) 1 spray TOPICAL Q4H PRN PRN Reason: For Perineum Discomfort Last Admin: 05/18/18 09:11 Dose: 1 spray Bisacodyl (Dulcolax Supp) 10 mg RECTAL DAILY PRN PRN Reason: SEVERE CONSITIPATION Ferrous Sulfate (Ferosul) 325 mg PO DAILY [facility] Last Admin: 05/19/18 10:26 Dose: 325 mg Oxytocin (Pitocin 30 Units/Ns 500 Ml Premix) 30 units in 500 mls @ 100 mls/hr IV.CONT UNSCH PRN PRN Reason: Heavy bleeding Ibuprofen (Motrin) 800 mg PO Q8H PRN PRN Reason: For Cramping Last Admin: 05/19/18 10:25 Dose: 800 mg Lactulose (Lactulose Liq) 30 ml PO DAILY PRN PRN Reason: SEVERE CONSITIPATION Lidocaine HCl (Xylocaine 1% Inj) 10 ml INFILTRATN PRN PRN PRN Reason: For episiotomy repair Stop: 05/19/18 22:52 Last Admin: 05/18/18 08:13 Dose: 10 ml Lidocaine HCl (Xylocaine 1% Inj) 0.1 ml I-DERMAL PRN PRN PRN Reason: For IV start Stop: 05/20/18 22:52 Mineral Oil (Muri-Lube Oil) 10 ml TOPICAL PRN PRN PRN Reason: PRN perineal massage Naloxone HCl (Narcan Inj) 0.1 mg IV.PUSH Q2M PRN PRN Reason: for opiate reversal Ondansetron HCl (Zofran Odt) 4 mg PO Q6H PRN PRN Reason: NAUSEA OR VOMITING Oxycodone/Acetaminophen (Percocet 5/325 Mg) 1 tab PO Q4H PRN PRN Reason: PAIN SCALE 3 TO 5 Oxycodone/Acetaminophen (Percocet 5/325 Mg) 2 tab PO Q4H PRN PRN Reason: PAIN SCALE 6 TO 10 Vit/Calcium/Iron/Folic Ac (Stuartnatal Plus 3) 1 tab PO DAILY [facility] Last Admin: 05/19/18 10:26 Dose: 1 tab Senna/Docusate Sodium (Sweta-Colace) 1 tab PO BID [facility] Last Admin: 05/19/18 10:26 Dose: 1 tab Sennosides (Senokot) 17.2 mg PO Q12H PRN PRN Reason: Moderate Constipation Sodium Chloride (Ns Flush) 2 ml IV.FLUSH BID [facility] Last Admin: 05/19/18 10:23 Dose: Not Given Sodium Chloride (Ns Flush) 2 ml IV.FLUSH PRN PRN PRN Reason: FLUSH AFTER USING IV ACCESS Witch Paige/Glycerin (Tucks Pads) 1 applicatio RECTAL QID PRN PRN Reason: HEMORRHOIDS Last Admin: 05/18/18 09:11 Dose: 1 applicatio Zolpidem Tartrate (Ambien) 5 mg PO HS PRN PRN Reason: SLEEP Assessment and Plan - Diagnosis (1) Post-dates Code(s): O48.0 - Post-term Status: Acute - Plan 27 yo with EDC 05/15/18 admitted for postdates labor induction 05/17/18 at 40w2d 1) IOL: s/p cytotec on admission, naty well, AROM'd this check; pitocin written if needed 2) GBS neg 3) short inter- interval; last delivery 05/16/2017 4) status: male, vertex, 8/8 BPP in office 05/15/18, EFW 8.5# 5) dispo: not meeting d/c criteria 05/19/18 PPD#1; Stable for discharge, RTO 6 wks Discharge Planning: routine, (1) Post-dates Qualifiers: Post-term type: 40-42 weeks gestation Qualified Code(s): O48.0 - Post-term
== END 2018-05-19 15:02 | disposition home or self-care (01) ==
LOC: H2E 20:33 → H1EA 05-18 09:35
PROVIDERS: ADMIT Obstetrics & Gynecology; ATTEND Obstetrics & Gynecology